=== PATIENT | female | born 1970 | race Caucasian/White ===

== ENCOUNTER 2017-03-09 12:19 | Emergency (ER) | payer MEDICAID ==
[2017-03-09 13:22] LABS: BASOPHILS 0.5 % (0-2); EOSINOPHILS 2.9 % (0-7); HEMATOCRIT 42.3 % (36.0-48.0); HEMOGLOBIN 14.5 g/dL (12-16); IMMATURE GRANULOCYTES 0.6 % (0-5); MCH 32.4 pg (26.0-34.0); MCHC 34.3 g/dL (31.0-37.0); MCV 94.4 fL (80.0-100.0); MEAN PLATELET VOLUME 9.6 fL (7.4-10.4); MONOCYTES 8.9 % (2-11); NEUTROPHILS 71.1 % (40-80); PLATELET COUNT 274 10x3/uL (130-400); RBC 4.48 10x6/uL (4.00-5.40); RDW 11.9 % (11.5-14.5); WBC 8.7 10x3/uL (4.8-10.8)
[2017-03-09 13:34] LABS: APPEARANCE HAZY (CLEAR); BILIRUBIN NEGATIVE (NEGATIVE); COLOR YELLOW (YELLOW); GLUCOSE NEGATIVE (NEGATIVE); KETONE NEGATIVE (NEGATIVE); LEUKOCYTE ESTERASE NEGATIVE (NEGATIVE); NITRITE NEGATIVE (NEGATIVE); PROTEIN NEGATIVE (NEGATIVE); SPECIFIC GRAVITY 1.025 (1.005-1.020); UROBILINOGEN NORMAL (NORMAL)
[2017-03-09 13:49] LABS: ALBUMIN 3.8 g/dL (3.4-5.0); ANION GAP 14.9 mmol/L (8-16); BILIRUBIN - TOTAL 0.26 mg/dL (0.2-1.3); CARBON DIOXIDE 25.1 mmol/L (21.0-32.0); CREATININE - SERUM 0.9 mg/dL (0.6-1.3); PROTEIN - SERUM 7.3 g/dL (6.4-8.2)
== END 2017-03-09 16:20 | disposition home or self-care (01) ==
LOC: D.ER 12:19
PROVIDERS: Emergency Medicine
DX: R10.9 Unspecified abdominal pain (principal); I10 Essential (primary) hypertension; F17.200 Nicotine dependence, unspecified, uncomplicated

== ENCOUNTER 2017-05-13 07:30 | Inpatient (IN) | payer MEDICAID ==
[~2017-05-13] VITALS: Ht 160 cm; Wt 104.5 kg
--- NOTE | ~2017-05-13 | OP ---
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 PROCEDURE: 1. Anterior cervical discectomy and decompression. 2. Anterior cervical fusion with LDR-SUSAN-C cage. Operated level C4-C5. 3. Radiologic localization in the OR. SURGEON: Pillo Sampson MD ESTIMATED BLOOD LOSS: 20 cc. SUMMARY: The patient was taken to the operating room and after an adequate level of general anesthetic was prepped and draped in the usual aseptic manner over the right side of the neck. An incision was made with a 10 blade after infiltrating with 1:400,000 of epinephrine and 0.5% lidocaine. Dissection was carried out down to the longus colli muscles. Cloward self-retaining retractors were used to maintain exposure. A spinal needle was placed in the interspace at C3-C4 and a C-arm fluoroscopic image was made. This confirmed the C4-C5 interspace and a 15 blade was then used to remove the annulus and anterior longitudinal ligament. Disc material was then removed with pituitary. Further removal of disc was carried out using a curette and a pituitary and bony osteophytes were removed from posterior aspect of the interspace with a Midas-Maurilio drill. A 1 and 2 mm Cloward punch was then used to enlarge the neural foramina bilaterally. When a thorough decompression had been carried down in this manner, a 7-mm trial was found the best fit interspace. Therefore, a 7 mm SUSAN-C cage was selected from the LDR packaging. It was soaked in vancomycin solution for approximately 10 minutes and then the soaked randa were brought into the field. The cage was then packed with hydroxyapatite material that was soaked with bone marrow aspirate. When the hydroxyapatite material had been packed thoroughly into the cage, the cage was inserted into the C4-C5 disc space and countersunk about a millimeter. Following this, the awl blades were then inserted into the device and used to make a hole in the endplate of the vertebra in C4 and in C5. Completing this, the randa were then inserted into the respective slots into the device and then tapped in with 2 different tamps. When this was completed, the C-arm image was made of the construct to be sure of everything being in proper position. This was the case, and therefore the application device was removed from the cage. The cage and the wound were then irrigated copiously with vancomycin solution. Closure was carried out with 3-0 Dexon on the platysma and subcuticular stitch with 4-0 Dexon was used on the skin. The patient tolerated the procedure well, was taken to recovery in stable condition, neurologically intact. Sensory evoked responses remained normal throughout this procedure. TRANSINT:[id number] Voice Confirmation ID: [id number] DOCUMENT ID: [id number] OPERATIVE REPORT [id number] VADIM BOYD JAMES MD CC: [id number] DICTATION DATE: 06/07/17 1324 SECURITY OPERATIONS ENGINEER: 06/07/17 1902 ADM IN [facility] [address] [id number]
[2017-06-03] MEDS ORDERED: LISINOPRIL10 MG PO (14:51)
[2017-06-03] MEDS ORDERED: ESTRACE1 MG PO (14:52)
[2017-06-03] MEDS ORDERED: SYNTHROID150 MCG PO (14:52)
[2017-06-03] MEDS ORDERED: SYNTHROID137 MCG PO (14:52)
[2017-06-03] MEDS ORDERED: IBUPROFEN800 MG PO (14:53)
[2017-06-03] MEDS ORDERED: TYLENOL PM1 TAB PO (14:53)
[2017-06-03] MEDS ORDERED: VITAMIN D250000 UNIT PO (14:54)
[2017-06-03] MEDS ORDERED: HYDROCODONE-APA1 TAB PO (14:54)
[2017-06-03 15:25] LABS: APPEARANCE HAZY (CLEAR); BILIRUBIN NEGATIVE (NEGATIVE); COLOR YELLOW (YELLOW); GLUCOSE NEGATIVE (NEGATIVE); KETONE NEGATIVE (NEGATIVE); LEUKOCYTE ESTERASE NEGATIVE (NEGATIVE); NITRITE NEGATIVE (NEGATIVE); PROTEIN NEGATIVE (NEGATIVE); UROBILINOGEN NORMAL (NORMAL)
[2017-06-03 15:50] LABS: BASOPHILS 0.6 % (0-2); EOSINOPHILS 3.2 % (0-7); HEMATOCRIT 42.3 % (36.0-48.0); HEMOGLOBIN 14.6 g/dL (12-16); IMMATURE GRANULOCYTES 0.6 % (0-5); LYMPHOCYTES 26.1 % (15-50); MCH 32.4 pg (26.0-34.0); MCHC 34.5 g/dL (31.0-37.0); MEAN PLATELET VOLUME 10.3 fL (7.4-10.4); MONOCYTES 6.7 % (2-11); NEUTROPHILS 62.8 % (40-80); RDW 11.6 % (11.5-14.5)
[2017-06-03 15:51] LABS: PLATELET COUNT 120 10x3/uL (130-400)
[2017-06-03 16:00] LABS: CALC OSMOLALITY 279 mosm/kg (275-300); CARBON DIOXIDE 24.2 mmol/L (21.0-32.0); CHLORIDE - SERUM 103 mmol/L (98-107); CREATININE - SERUM 0.5 mg/dL (0.6-1.3); GLUCOSE 106 mg/dL (74-106); POTASSIUM - SERUM 4.5 mmol/L (3.5-5.1); SODIUM 140 mmol/L (136-145); UREA NITROGEN 15 mg/dL (7-18); eGFR NON AFRICAN AMERICAN > 90 mL/min (90-120)
[2017-06-07 10:37] VITALS: BP 126/67; BMI 40.8
--- NOTE | 2017-06-07 14:25 | NUR ---
RECEIVED TO ROOM 2222 FROM RECOVERY ROOM. VSS. IV TO L FA PATENT. STERI STRIPS INTACT TO R ANTERIOR NECK INCISION. COMPLAINING OF "FEELING HOT BEHIND THIGHS." COLD WASHWASHES PLACED UNDER LEGS PER PATIENT REQUEST. COMPLAINING OF NAUSEA. FAMILY AT BEDSIDE.
[2017-06-07 14:29] VITALS: BP 154/76
[2017-06-07 15:51] VITALS: BP 154/76; Ht 160 cm; Wt 104.5 kg
--- NOTE | 2017-06-07 17:45 | NUR ---
COMPLAINING OF NAUSEA. ZOFRAN GIVEN SLOW IVP. FAMILY AT BEDSIDE.
[2017-06-07 19:00] VITALS: BP 140/77
--- NOTE | 2017-06-07 19:50 | NUR ---
ASSESSMENT PER FLOWSHEET. C/O INCISIONAL PAIN RATES PAIN LEVEL #8. MORPHINE 2 MG IVP GIVEN FOR PAIN CONTROL.
--- NOTE | 2017-06-07 20:30 | NUR ---
UP WITH HELP TO BR VOIDS WELL. INCISION RT NECK WITH STERI STRIPS ON. NOTIFIED AZRA NEED FOR SOFT CERVICAL COLLAR.
--- NOTE | 2017-06-07 23:54 | NUR ---
REQUESTING MUSCLE RELAXOR ROBAXIN 750 MG TAB GIVEN PO FOR MUSCLE SPASMS PT WANTS TO KNOW WHERE HER COLAR IS AT. NOTIFIED AZRA CLINICAL EDUCATION CONSULTANT. STILL WAITING FOR COLLAR.
--- NOTE | 2017-06-08 00:30 | NUR ---
PATIENT IN TEARS WANTS HER COLLAR. NOTIFIED JENNIFER BANERJEE NEED FOR SOFT CERVICAL COLLAR.
--- NOTE | 2017-06-08 01:10 | NUR ---
JENNIFER DAIRY ASSOCIATE HERE WITH PT'S SOFT CERVICAL COLLAR. PLACED COLLAR ON PATIENT'S NECK. C/O PAIN RATES PAIN LEVEL #10 MORPHINE 2 MG IVP GIVEN FOR PAIN CONTROL.
--- NOTE | 2017-06-08 01:30 | NUR ---
C/O NAUSEA NO EMESIS SEEN ZOFRAN 4MG IVP GIVEN FOR RELIEF OF NAUSEA.
--- NOTE | 2017-06-08 02:20 | NUR ---
RESTING AT THIS TIME STATES COLLAR DOES HELP RELIEVE THE NECK PRESSURE. HOB UP 30 DEGREES.
[2017-06-08 04:00] VITALS: BP 115/72
--- NOTE | 2017-06-08 05:06 | NUR ---
C/O PAIN AND NAUSEA NO EMESIS SEEN. MORPHINE 2 MG IVP GIVEN FOR PAIN CONTROL. TOO EARLY FOR NAUSEA MED. WILL GIVEN WHEN TIME PERMITS.
--- NOTE | 2017-06-08 07:50 | NUR ---
ASSESSMENT COMPLETE. IV TO L FA PATENT. D5 1/2 INFUSING AT 50 CC/HR VIA PUMP. STERI STRIPS INTACT TO R ANTERIOR NECK.
[2017-06-08 08:43] VITALS: BP 120/90
--- NOTE | 2017-06-08 12:30 | NUR ---
IV TO L PULLED OUT. CATHETER TIP INTACT. UNABLE TO SITE IV X 1 ATTEMPT. IV SITED TO R HAND WITH 22 GUAGE X 2 ATTEMPTS BY LASHAE DAVENPORT RN.
[2017-06-08 13:56] VITALS: BP 139/69
--- NOTE | 2017-06-08 15:00 | NUR ---
NO CHANGES NOTED AT PRESENT.
[2017-06-08 16:17] VITALS: BP 140/64
[2017-06-08 19:00] VITALS: BP 154/85
--- NOTE | 2017-06-08 20:00 | NUR ---
ASSESSMENT PER FLOWSHEET. RT NECK INCISION DRSG C/D/I WEARS SOFT COLLAR PRN. IV PATENT RT HAND OF D51/2NS AT 50CC'S/HR SITE CLEAR. UP AD JANIYA IN ROOM VOIDS WELL.
--- NOTE | 2017-06-08 21:06 | NUR ---
REQUESTING MUSCLE RELAXOR ROBAXIN 750MG PO TAB ONE GIVEN FOR MUSCLE SPASMS.
--- NOTE | 2017-06-08 21:17 | NUR ---
C/O INCISIONAL PAIN NORCO 10 TAB ONE PO GIVEN FOR PAIN CONTROL.
--- NOTE | 2017-06-08 23:21 | NUR ---
IV OUT PT REFUSES TO HAVE ANOTHER IV PLACED.
[2017-06-09] VITALS: BP 149/86
--- NOTE | 2017-06-09 | NUR ---
AWAKE EATING ICE CREAM AND JELLO.
--- NOTE | 2017-06-09 03:00 | NUR ---
EYES CLOSED RESPIRATIONS WITH EASE AND UNLABORED.
[2017-06-09 04:00] VITALS: BP 115/65
--- NOTE | 2017-06-09 06:39 | NUR ---
MEDS GIVEN PER JAN. UP AD JANIYA TO BR AND WITHIN ROOM NO CHANGES IN ASSESSMENT.
--- NOTE | 2017-06-09 08:00 | NUR ---
PT AOX4 RESP EVEN AND NONLABORED PT DENIES NEEDS AT THIS TIME SRX2 BED IN LOWEST SETTING CALL LIGHT WITHIN REACH WILL CONTINUE TO MONITOR
[2017-06-09 08:42] VITALS: BP 128/68
[2017-06-09] MEDS ORDERED: ROBAXIN-750750 MG PO (11:09)
[2017-06-09] MEDS ORDERED: HYDROCODONE-APA1 TAB PO (11:13)
[2017-06-09 11:58] VITALS: BP 118/61
[2017-06-09 15:07] VITALS: BP 137/76
--- NOTE | 2017-06-09 16:10 | NUR ---
PT GIVEN DISCHARGE INSTRUCTIONS AND ONE PRESCRIPTION FOR PAIN MEDICATION AT THIS TIME. PT TAKEN BY WHEELCHAIR TO ENTRANCE AND LEFT PRIVATE VEHICLE AT THIS TIME
== END 2017-06-09 16:12 | disposition home or self-care (01) | DRG 473 ==
LOC: D.MS 06-07 07:49 → D.SDCHOLD 06-07 07:49 → D.MS 06-07 14:18
PROVIDERS: ADMIT Neurological Surgery
PROC: 0RB30ZZ Excision of Cervical Vertebral Disc, Open Approach (ICD-10-PCS; 2017-06-07)
PROC: 0RG10A0 Fusion of Cervical Vertebral Joint with Interbody Fusion Device, Anterior Approach, Anterior Column, Open Approach (ICD-10-PCS; principal; 2017-06-07 11:00)
DX: M50.221 Other cervical disc displacement at C4-C5 level (principal); G54.2 Cervical root disorders, not elsewhere classified; M25.78 Osteophyte, vertebrae

== ENCOUNTER 2018-11-28 07:50 | Day surgery (SDC) | payer BC ==
[2018-11-25 14:14] LABS: HEMATOCRIT 42.3 % (36.0-48.0); HEMOGLOBIN 14.8 g/dL (12-16); MCV 94.2 fL (80.0-100.0); MEAN PLATELET VOLUME 9.8 fL (7.4-10.4); RBC 4.49 10x6/uL (4.00-5.40); RDW 11.8 % (11.5-14.5); WBC 6.9 10x3/uL (4.8-10.8)
[~2018-11-28] VITALS: Ht 160 cm; Wt 102.5 kg
[2018-11-28 06:23] VITALS: BP 157/76; Ht 160 cm; Wt 102.5 kg
[~2018-11-28 07:50] MED LIST: BENADRYL25 MG PO; ESTRACE1 MG PO; HYDROCODONE-APA1 TAB PO; IBUPROFEN800 MG PO; LISINOPRIL10 MG PO; ROBAXIN-750750 MG PO; SYNTHROID137 MCG PO; SYNTHROID150 MCG PO; TYLENOL PM1 TAB PO; VITAMIN D250000 UNIT PO
[2018-11-28] MEDS ORDERED: HYDROCODON-ACE1 EAC7 PO (09:31)
--- NOTE | 2018-11-28 11:34 | NUR ---
DC INSTRUCTIONS GIVEN TO PT/FAMILY. STATE UNDERSTANDING. PT STATES FEELING NEED TO VOID UPON ARRIVAL TO UNIT. I TOLD PT THAT FOR HER SAFETY WE WELL USE BED MONTOYA SINCE SHE APPEARED DROWSY. HOWEVER, PT WAS UNABLE TO VOID IN BEDPAN. AFTER ABOUT 45 MIN HERE IN [facility], 2 NURSES WERE ABLE TO HELP HER TO THE BATHROOM. SHE WAS ABLE TO VOID. WE WERE ABLE TO BRING HER BACK TO BED. PT STATES FEELING NAUSEATED. UNABLE TO GIVE HER ZOFRAN SINCE SHE WAS GIVEN 8 MG ZOFRAN ALREADY. HER NAUSEA IS MOST LIKELY DUE TO HER GETTING UP TO THE BATHROOM AND BACK TO BED. WILL CONTINUE TO MONITOR.
--- NOTE | 2018-11-28 13:20 | NUR ---
PT DENIES N/V AT THIS TIME. DC'D IV CATH FULLY INTACT.
--- NOTE | 2018-11-28 13:47 | NUR ---
PT LEFT UNIT VIA WC AT 1336
== END 2018-11-28 13:36 | disposition home or self-care (01) ==
LOC: D.OPS → D.PAN 08:00 → D.OPS 13:36
PROVIDERS: Anesthesiology
DX: R13.10 Dysphagia, unspecified (principal); Z46.51 Encounter for fitting and adjustment of gastric lap band; E66.01 Morbid (severe) obesity due to excess calories; I10 Essential (primary) hypertension; Z01.812 Encounter for preprocedural laboratory examination